=== PATIENT | male | born 1980 | race African-American/Black ===

== ENCOUNTER 2021-06-21 09:08 | Emergency (ER) | payer OTHER ==
[~2021-06-21] VITALS: Ht 180.3 cm; Wt 81.8 kg
[~2021-06-21 09:08] MED LIST: FLEXERIL 1010 MG/TAB PO; NAPROSYN500 MG PO; NORCO 325 MG-101 TAB PO; PERCOCET 325 MG1 TAB PO
[2021-06-21 09:29] VITALS: TEMP 98.7
[2021-06-21] MEDS ORDERED: ZOFRAN ODT4 MG PO (11:08)
[2021-06-21] MEDS ORDERED: TAMIFLU 75MG75 MG PO (11:08)
[2021-06-21 11:17] VITALS: BP 148/78; PULSE 88
== END 2021-06-21 11:18 | disposition home or self-care (01) ==
LOC: COL.ER 09:08
DX: B34.9 Viral infection, unspecified (principal); J45.909 Unspecified asthma, uncomplicated; F17.200 Nicotine dependence, unspecified, uncomplicated; Z20.822 Contact with and (suspected) exposure to COVID-19

== ENCOUNTER 2022-10-25 18:18 | Emergency (ER) | payer OTHER ==
[~2022-10-25] VITALS: Ht 180.3 cm; Wt 84.1 kg
[~2022-10-25 18:18] MED LIST changes: +TAMIFLU 75MG75 MG PO; +ZOFRAN ODT4 MG PO
[2022-10-25 18:59] LABS: COLLECTION METHOD CLEAN CATCH
[2022-10-25] MEDS ORDERED: DOXYCYCLINE 10100 MG PO (19:08)
[2022-10-25 19:23] LABS: URINE APPEARANCE Clear (CLEAR/HAZY); URINE BLOOD Negative (NEGATIVE); URINE COLOR Yellow (YELLOW); URINE GLUCOSE Negative (NEGATIVE); URINE KETONE Negative (NEGATIVE); URINE NITRATE Negative (NEGATIVE); URINE PROTEIN(semi-quant) Negative (NEGATIVE)
[2022-10-25 19:25] LABS: MUCOUS Present (NOT PRESENT); SQUAMOUS EPITHELIAL 0-2 /hpf (0-10); URINE BACTERIA None Seen /hpf (NONE SEEN); URINE RBC 0-2 /hpf (0-2)
[2022-10-25 19:30] VITALS: BP 125/82; PULSE 78; TEMP 98.1
== END 2022-10-25 19:30 | disposition home or self-care (01) ==
LOC: COL.ER 18:18
PROVIDERS: Family Medicine
DX: S80.11XA Contusion of right lower leg, initial encounter (principal); R30.0 Dysuria; R36.9 Urethral discharge, unspecified; F17.210 Nicotine dependence, cigarettes, uncomplicated; Z28.310 Unvaccinated for COVID-19; Y04.1XXA Assault by human bite, initial encounter
CPT/HCPCS: J0696

== ENCOUNTER 2022-10-25 23:52 | Emergency (ER) | payer OTHER ==
[~2022-10-25] VITALS: Ht 180.3 cm; Wt 81.8 kg
[~2022-10-25 23:52] MED LIST changes: +DOXYCYCLINE 10100 MG PO
[2022-10-26 00:09] VITALS: TEMP 98.7
[2022-10-26 00:42] LABS: COLLECTION METHOD CLEAN CATCH
[2022-10-26 00:53] LABS: MUCOUS Present (NOT PRESENT); URINE BACTERIA None Seen /hpf (NONE SEEN)
[2022-10-26 00:54] LABS: URINE APPEARANCE Cloudy (CLEAR/HAZY); URINE BLOOD TRACE-INTACT (NEGATIVE); URINE COLOR Yellow (YELLOW); URINE GLUCOSE Negative (NEGATIVE); URINE KETONE TRACE (NEGATIVE); URINE NITRATE Negative (NEGATIVE); URINE PROTEIN(semi-quant) TRACE (NEGATIVE)
[2022-10-26 01:05] VITALS: BP 122/72; PULSE 80
[2022-10-26 01:46] LABS: HIV 1/2 Antibodies Non-Reactive; HIV-1p24 Antigen Non-Reactive
== END 2022-10-26 01:11 | disposition home or self-care (01) ==
LOC: COL.ER 23:52
PROVIDERS: Emergency Medicine
DX: R36.9 Urethral discharge, unspecified (principal); N39.0 Urinary tract infection, site not specified; Z28.310 Unvaccinated for COVID-19
CPT/HCPCS: 86780